=== PATIENT | female | born 1980 | race Caucasian/White ===

== ENCOUNTER 2018-05-02 21:11 | Emergency (ER) | payer MEDICAID ==
[~2018-05-02] VITALS: Ht 167.6 cm; Wt 98.0 kg
[2018-05-02] MEDS ORDERED: SODIUM CHLORIDE 0.9% 1,000 ML IV ONE (21:16)
[2018-05-02 23:34] LABS: BASOPHILS % 0.3 % (0.0-2.0); EOSINOPHILS % 0.4 % (0.0-5.0); HEMATOCRIT. 37.8 % (36.0-48.0); HEMOGLOBIN. 12.1 g/dL (12.0-16.0); LYMPHOCYTES % 22.2 % (20.0-50.0); MEAN CORPUSCULAR HEMOGLOBIN 25.3 pg (28.0-32.0); MONOCYTES % 4.6 % (2.0-8.0); NEUTROPHILS % 72.5 % (40.0-76.0); PLATELET 189 x1000/uL (130-400); RED BLOOD CELL COUNT 4.79 mill/uL (4.2-5.4); RED CELL DISTRIBUTION WIDTH 17.8 % (11.6-14.6)
[2018-05-02 23:36] LABS: CHLORIDE 106 mEq/L (98-107)
[2018-05-02 23:37] LABS: INR 1.1; PROTHROMBIN TIME 11.1 sec (9.1-11.1)
[2018-05-02 23:44] LABS: ETHANOL BLOOD < 10 mg/dL
[2018-05-02 23:48] LABS: CREATINE KINASE 324 IU/L (26-192)
[2018-05-03 00:06] LABS: CARBAMAZEPINE < 0.5 ug/mL (4-12); PHENOBARBITAL < 2.1 ug/mL (15.0-40.0); VALPROIC ACID < 3.0 ug/mL (50-100)
[2018-05-03 00:20] LABS: HCG SCREEN NEGATIVE
[2018-05-03 04:05] VITALS: BP 123/65
== END 2018-05-03 04:25 | disposition home or self-care (01) ==
LOC: ER 21:27
DX: T42.4X1A Poisoning by benzodiazepines, accidental (unintentional), initial encounter (principal); G92 Toxic encephalopathy; R03.0 Elevated blood-pressure reading, without diagnosis of hypertension; Y92.018 Other place in single-family (private) house as the place of occurrence of the external cause
CPT/HCPCS: 36415; 80053; 80156; 80165; 80184; 80185; 82550; 83880; 84443; 84484; 84703; 85025; 85610; 96360; 96361; 99285; G0482; J7030

== ENCOUNTER 2022-05-28 11:01 | Emergency (ER) | payer MEDICAID ==
[~2022-05-28] VITALS: Ht 165.1 cm; Wt 82.0 kg
[2022-05-28 11:12] VITALS: BP 168/90
[2022-05-28 12:58] LABS: CHLORIDE 103 mEq/L (98-107)
[2022-05-28 13:10] LABS: BASOPHILS % 1.1 % (0.0-2.0); EOSINOPHILS % 0.9 % (0.0-5.0); HEMATOCRIT. 34.1 % (36.0-48.0); HEMOGLOBIN. 10.9 g/dL (12.0-16.0); LYMPHOCYTES % 22.7 % (20.0-50.0); MEAN CORPUSCULAR VOLUME 90.8 fL (81.0-99.0); MONOCYTES % 10.4 % (2.0-8.0); NEUTROPHILS % 64.9 % (40.0-76.0); RED BLOOD CELL COUNT 3.75 mill/uL (4.2-5.4)
[2022-05-28 13:28] LABS: ETHANOL BLOOD 308 mg/dL
[2022-05-28 13:56] LABS: MEAN PLATELET VOLUME 8.2 fl (7.4-10.4); PLATELET 19 x1000/uL (130-400)
[2022-05-28 13:58] LABS: PLATELET ESTIMATE MARKEDLY DECREASED
== END 2022-05-28 14:06 | disposition left against medical advice (07) ==
LOC: ER 12:01
DX: S50.11XA Contusion of right forearm, initial encounter (principal); S40.011A Contusion of right shoulder, initial encounter; F10.129 Alcohol abuse with intoxication, unspecified; Y90.8 Blood alcohol level of 240 mg/100 ml or more; D61.818 Other pancytopenia; R74.01 Elevation of levels of liver transaminase levels; F41.9 Anxiety disorder, unspecified; K70.9 Alcoholic liver disease, unspecified; Z20.822 Contact with and (suspected) exposure to COVID-19; Z86.16 Personal history of COVID-19; W01.0XXA Fall on same level from slipping, tripping and stumbling without subsequent striking against object, initial encounter; Y93.89 Activity, other specified; Y92.018 Other place in single-family (private) house as the place of occurrence of the external cause
CPT/HCPCS: 36415; 71045; 80053; 80320; 83880; 85025; 87426; 99284; C9803; G0480

== ENCOUNTER 2022-10-10 17:03 | Inpatient (IN) | payer MEDICAID, OTHER ==
[~2022-10-10] VITALS: Ht 167.6 cm; Wt 93.2 kg
[2022-10-10] MEDS ORDERED: PANTOPRAZOLE SODIUM 40 MG/VIAL IV ONE (17:45)
[2022-10-10] MEDS ORDERED: SODIUM CHLORIDE 0.9% 1,000 ML IV ONE (17:45)
[2022-10-10] MEDS ORDERED: VISCOUS LIDOCAINE 2% 15 ML UDC MM ONE (18:00)
[2022-10-10] MEDS ORDERED: MAGNESIUM/ALUMINUM HYDROXIDE/SIMETHICONE 30ML UDC PO ONE (18:00)
[2022-10-10 19:05] LABS: HEMATOCRIT. 32.1 % (36.0-48.0); HEMOGLOBIN. 10.5 g/dL (12.0-16.0); LYMPHOCYTES % 45.8 % (20.0-50.0); MEAN CORPUSCULAR HEMOGLOBIN 27.9 pg (28.0-32.0); MEAN CORPUSCULAR VOLUME 85.4 fL (81.0-99.0); MEAN PLATELET VOLUME 8.8 fl (7.4-10.4); MONOCYTES % 8.9 % (2.0-8.0); NEUTROPHILS % 42.3 % (40.0-76.0); PLATELET 53 x1000/uL (130-400); RED BLOOD CELL COUNT 3.76 mill/uL (4.2-5.4); RED CELL DISTRIBUTION WIDTH 17.8 % (11.6-14.6)
[2022-10-10 19:14] LABS: CHLORIDE 103 mEq/L (98-107)
[2022-10-10 19:16] LABS: INR 1.6; PARTIAL THROMBOPLASTIN TIME 36.9 sec (23.4-31.0); PROTHROMBIN TIME 16.5 sec (9.6-11.0)
[2022-10-10 19:24] LABS: ETHANOL BLOOD 220 mg/dL; PHOSPHORUS 3.2 mg/dL (2.5-4.9)
[2022-10-10 19:48] LABS: HCG SCREEN NEGATIVE
[2022-10-10] MEDS ORDERED: SODIUM BICARBONATE 8.4% 1 MEQ/ML 50ML SYR IV NR (20:00)
[2022-10-10] MEDS ORDERED: MORPHINE SULFATE 4 MG/ML CPJ (NOT FOR IM USE) IV ONE (20:15)
[2022-10-11 00:22] LABS: CLARITY URINE CLEAR (CLEAR); COLOR URINE DARK YELLOW (YELLOW); KETONES URINE NEGATIVE (NEGATIVE); LEUKOCYTE ESTERASE URINE TRACE (NEGATIVE); NITRITE URINE POSITIVE (NEGATIVE); OCCULT BLOOD URINE 2+ (NEGATIVE); PH URINE 6.5 (4.5-8.0); PROTEIN URINE NEGATIVE (NEGATIVE)
[2022-10-11 00:38] LABS: *AMPHETAMINES SCREEN URINE NEGATIVE (NEGATIVE); *BARBITURATES SCREEN URINE NEGATIVE (NEGATIVE); *COCAINE SCREEN URINE NEGATIVE (NEGATIVE); CANNABINOID URINE SCREEN NEGATIVE (NEGATIVE); METHADONE URINE SCREEN NEGATIVE (NEGATIVE); PHENCYCLIDINE URINE SCREEN NEGATIVE (NEGATIVE)
[2022-10-11 00:53] LABS: *BENZODIAZEPINES SCREEN URINE PRESUMTIVE POSITIVE (NEGATIVE); OPIATES URINE SCREEN PRESUMTIVE POSITIVE (NEGATIVE)
[2022-10-11] MEDS: MORPHINE SULFATE 2 MG/ML CPJ (NOT FOR IM USE) IV PRN ×2 (02:07→08:05)
[2022-10-11 05:48] VITALS: BP 148/80
[2022-10-11 06:00] VITALS: BP 148/80
[2022-10-11] MEDS ORDERED: RIFA550T PO (07:39)
[2022-10-11] MEDS ORDERED: THIA100T88 PO (07:39)
[2022-10-11] MEDS ORDERED: FOLI-43 PO (07:39)
[2022-10-11] MEDS ORDERED: FERR-71 PO (07:39)
[2022-10-11] MEDS ORDERED: MEDR10TA PO (07:39)
[2022-10-11] MEDS ORDERED: ALPR0.25 PO (07:39)
[2022-10-11 08:00] VITALS: BP 140/69
[2022-10-11] MEDS ORDERED: PANT40SU PO (08:13)
[2022-10-11] MEDS ORDERED: FURO20TA4 PO (08:13)
[2022-10-11] MEDS ORDERED: NADO20TA3 PO (08:13)
[2022-10-11] MEDS ORDERED: trental PO (08:13)
[2022-10-11] MEDS ORDERED: SPIR100T5 PO (08:13)
[2022-10-11] MEDS ORDERED: CEFTRIAXONE 1 G PREMIX 50 ML IV SCH (08:15)
[2022-10-11] MEDS ORDERED: ACETAMINOPHEN 325MG TABLET PO PRN (08:15)
[2022-10-11] MEDS ORDERED: ONDANSETRON HCL 4MG/2ML INJ IV PRN (08:15)
[2022-10-11] MEDS ORDERED: FOLIC ACID 1 MG, THIAMINE HCL 100 MG, MVI, ADULT NO.1 10 ML in DEXTROSE 5% WATER 1,000 ML IV ONE ×4 (10:00)
[2022-10-11] MEDS: CEFTRIAXONE 1,000 MG in DEXTROSE 5% WATER 50 ML IV SCH (10:54)
[2022-10-11] MEDS: FUROSEMIDE 40MG/4ML VIAL IVP SCH (10:58)
[2022-10-11] MEDS: PANTOPRAZOLE SODIUM 40 MG/VIAL IV SCH (10:58)
[2022-10-11] MEDS: LORAZEPAM 2MG/ML CPJ IV PRN ×2 (10:59→20:36)
[2022-10-11 12:00] VITALS: BP 141/72
[2022-10-11 12:18] LABS: BASOPHILS % 1.8 % (0.0-2.0); EOSINOPHILS % 2.3 % (0.0-5.0); LYMPHOCYTES % 39.5 % (20.0-50.0); MEAN CORPUSCULAR HEMOGLOBIN 28.3 pg (28.0-32.0); MEAN CORPUSCULAR VOLUME 84.7 fL (81.0-99.0); MEAN PLATELET VOLUME 8.1 fl (7.4-10.4); MONOCYTES % 11.7 % (2.0-8.0); NEUTROPHILS % 44.7 % (40.0-76.0); RED BLOOD CELL COUNT 3.19 mill/uL (4.2-5.4); RED CELL DISTRIBUTION WIDTH 17.7 % (11.6-14.6)
[2022-10-11 12:21] LABS: INR 1.7; PROTHROMBIN TIME 17.6 sec (9.6-11.0)
[2022-10-11 12:24] LABS: CHLORIDE 105 mEq/L (98-107)
[2022-10-11 12:27] LABS: PLATELET 40 x1000/uL (130-400)
[2022-10-11 12:46] LABS: HEPATITIS B SURFACE AB < 3.1 mIU/mL
[2022-10-11 12:52] LABS: PLATELET ESTIMATE MARKEDLY DECREASED
[2022-10-11] MEDS ORDERED: NALOXONE HCL 0.4MG/ML VIAL IV PRN (14:15)
[2022-10-11] MEDS: CHLORDIAZEPOXIDE 25MG CAPSULE PO SCH ×2 (14:36→22:19)
[2022-10-11] MEDS: TRAMADOL 50MG TABLET PO PRN ×2 (14:36→22:20)
[2022-10-11 15:44] VITALS: BP 133/60
[2022-10-11] MEDS: HYDROCODONE/ACETAMINOPHEN 5/325MG TABLET PO PRN (16:51)
[2022-10-11 20:15] VITALS: BP 148/82
[2022-10-12] VITALS (7 sets, daily range): BP systolic 105–152; BP diastolic 63–89
[2022-10-12] MEDS: HYDROCODONE/ACETAMINOPHEN 5/325MG TABLET PO PRN ×3 (01:20→17:26)
[2022-10-12] MEDS: CHLORDIAZEPOXIDE 25MG CAPSULE PO SCH ×3 (05:33→21:11)
[2022-10-12 06:25] LABS: BASOPHILS % 0.9 % (0.0-2.0); EOSINOPHILS % 2.8 % (0.0-5.0); HEMATOCRIT. 25.2 % (36.0-48.0); HEMOGLOBIN. 8.5 g/dL (12.0-16.0); LYMPHOCYTES % 45.4 % (20.0-50.0); MEAN CORPUSCULAR HEMOGLOBIN 28.5 pg (28.0-32.0); MEAN CORPUSCULAR VOLUME 84.3 fL (81.0-99.0); MEAN PLATELET VOLUME 8.3 fl (7.4-10.4); MONOCYTES % 9.1 % (2.0-8.0); NEUTROPHILS % 41.8 % (40.0-76.0); RED BLOOD CELL COUNT 2.99 mill/uL (4.2-5.4); RED CELL DISTRIBUTION WIDTH 17.8 % (11.6-14.6)
[2022-10-12 06:47] LABS: PLATELET 38 x1000/uL (130-400)
[2022-10-12 07:33] LABS: CHLORIDE 100 mEq/L (98-107)
[2022-10-12] MEDS: PANTOPRAZOLE SODIUM 40 MG/VIAL IV SCH (07:58)
[2022-10-12] MEDS: FUROSEMIDE 40MG/4ML VIAL IVP SCH (07:58)
[2022-10-12] MEDS ORDERED: METOPROLOL TARTRATE 50MG TABLET PO NR (11:15)
[2022-10-12] MEDS: CEFTRIAXONE 1,000 MG in DEXTROSE 5% WATER 50 ML IV SCH (12:21)
[2022-10-12] MEDS ORDERED: POTASSIUM CHLORIDE 20MEQ/PACKET PO NR (20:45)
[2022-10-12] MEDS: METOPROLOL TARTRATE 50MG TABLET PO SCH (21:11)
[2022-10-12] MEDS: LORAZEPAM 2MG/ML CPJ IV PRN (23:37)
[2022-10-13] VITALS (10 sets, daily range): BP systolic 100–122; BP diastolic 54–67
[2022-10-13] MEDS: CHLORDIAZEPOXIDE 25MG CAPSULE PO SCH ×2 (05:36→13:09)
[2022-10-13] MEDS: FUROSEMIDE 40MG/4ML VIAL IVP SCH (08:53)
[2022-10-13] MEDS: PANTOPRAZOLE SODIUM 40 MG/VIAL IV SCH (08:53)
[2022-10-13] MEDS: METOPROLOL TARTRATE 50MG TABLET PO SCH (08:54)
[2022-10-13 10:51] LABS: BASOPHILS % 1.2 % (0.0-2.0); EOSINOPHILS % 1.5 % (0.0-5.0); HEMATOCRIT. 28.9 % (36.0-48.0); HEMOGLOBIN. 9.5 g/dL (12.0-16.0); LYMPHOCYTES % 20.9 % (20.0-50.0); MEAN CORPUSCULAR HEMOGLOBIN 28.2 pg (28.0-32.0); MEAN CORPUSCULAR VOLUME 85.8 fL (81.0-99.0); MONOCYTES % 7.6 % (2.0-8.0); NEUTROPHILS % 68.8 % (40.0-76.0); RED BLOOD CELL COUNT 3.37 mill/uL (4.2-5.4); RED CELL DISTRIBUTION WIDTH 18.6 % (11.6-14.6)
[2022-10-13 11:09] LABS: CHLORIDE 104 mEq/L (98-107)
[2022-10-13 11:13] LABS: MEAN PLATELET VOLUME 8.3 fl (7.4-10.4); PLATELET 51 x1000/uL (130-400)
[2022-10-13] MEDS ORDERED: SODIUM BICARBONATE 4% (2.4MEQ) 5ML VIAL IV ONE (11:55)
[2022-10-13] MEDS ORDERED: LIDOCAINE HCL 1% 10 MG/ML 10ML VIAL ONE (11:55)
[2022-10-13] MEDS: CEFTRIAXONE 1,000 MG in DEXTROSE 5% WATER 50 ML IV SCH (13:09)
[2022-10-13] MEDS: TRAMADOL 50MG TABLET PO PRN (13:09)
== END 2022-10-13 17:01 | disposition home or self-care (01) | DRG 280 ==
LOC: ER 17:18 → 3WST 22:49 → EDBEDREQ 22:54 → ER 10-11 04:49 → 3WST 10-11 05:37
PROVIDERS: ADMIT Internal Medicine; ATTEND Internal Medicine
PROC: 0W9G3ZZ Drainage of Peritoneal Cavity, Percutaneous Approach (ICD-10-PCS; principal; 2022-10-13)
PROC: 30233R1 Transfusion of Nonautologous Platelets into Peripheral Vein, Percutaneous Approach (ICD-10-PCS; 2022-10-13)
DX: K70.31 Alcoholic cirrhosis of liver with ascites (principal); K85.90 Acute pancreatitis without necrosis or infection, unspecified; D61.818 Other pancytopenia; N39.0 Urinary tract infection, site not specified; E11.9 Type 2 diabetes mellitus without complications; F32.A Depression, unspecified; F10.229 Alcohol dependence with intoxication, unspecified; Z20.822 Contact with and (suspected) exposure to COVID-19; R74.01 Elevation of levels of liver transaminase levels; Z79.899 Other long term (current) drug therapy; Y90.7 Blood alcohol level of 200-239 mg/100 ml; R00.2 Palpitations; N92.0 Excessive and frequent menstruation with regular cycle
CPT/HCPCS: 36415; 49083; 71045; 74176; 80048; 80053; 80076; 80305; 80320; 81003; 82248; 83605; 83735; 83880; 84100; 84484; 84703; 85025; 85049; 86706; 86803; 86850; 86870; 86900; 87426; 93005; 99291; C9113; J0696; J1940; J2060; J2270; J3411; J3490; J7030; J7060; J7070; P9034; G0480